=== PATIENT | male | born 1950 | race Caucasian/White ===

== ENCOUNTER 2017-05-09 09:30 | Outpatient (RCR) | payer OTHER | END 2017-05-29 | disposition home or self-care (01) | LOC: PTY 09:30 | DX: M54.32 Sciatica, left side (principal) | CPT/HCPCS: 97110; 97161; G0283 ==

== ENCOUNTER 2017-06-05 09:10 | Outpatient (RCR) | payer OTHER | END 2017-06-29 | disposition home or self-care (01) | LOC: PTY 09:10 | DX: M54.32 Sciatica, left side (principal); M48.061 Spinal stenosis, lumbar region without neurogenic claudication | CPT/HCPCS: 97110; G0283 ==